=== PATIENT | male | born 1995 | race Caucasian/White ===

== ENCOUNTER 2017-09-20 23:55 | Day surgery (SDC) | payer OTHER ==
[~2017-09-20 23:55] MED LIST: Dexamethasone 4 MG/ML 5 ML MDV IVPUSH ONE; Glycopyrrolate 0.2 MG/ML 2 ML SDV IV ONE; Ketorolac 30 MG/ML SDV IVPUSH ONE; Lactated Ringers 1,000 ML IV ONE; Midazolam 1 MG/ML 2 ML SDV IV ONE; Neostigmine Methylsulfate 1 MG/ML 5 ML Syringe IV ONE; Ondansetron 4 MG/2 ML SDV IVPUSH ONE; Propofol 200 MG/20 ML SDV IV ONE; Rocuronium 100 MG/10 ML MDV IV ONE; Succinylcholine 200 MG/10 ML MDV IV ONE; cefOXitin 1 GM Vial IV ONE; diphenhydrAMINE 50 MG/ML SDV IV ONE; fentaNYL 100 MCG/2 ML SDV IV ONE
[2017-09-21] MEDS ORDERED: Ondansetron 4 MG/2 ML SDV IVPUSH ONE (00:22)
[2017-09-21] MEDS ORDERED: Morphine 4 MG/ML Syringe IVPUSH ONE (00:22)
[2017-09-21] MEDS ORDERED: Sodium Chloride 0.9% 10 ML Syringe FLUSH PRN (00:25)
[2017-09-21] MEDS ORDERED: Sodium Chloride 0.9% 1,000 ML IV SCH ×2 (00:30→01:45)
--- NOTE | 2017-09-21 00:30 | EDM.PDOC ---
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, did not bother too much at work, inc'd pain with walking however, inc'd pain on ride over to hospital pain worse this PM ate a quesidillaa and cookie for supper at 8 PM which made pain worse, some nausea d/t pain, no V no f/c/d no previous abd pain except for occasional cramps with exertion, no previous surgery, on no meds soft BM at 10 AM and 1 PM with no change in pain Lower Abdominal Pain Score (Numeric/FACES): 7 - Related Data Allergies Allergy/AdvReac Type Severity Reaction Status Date / Time Penicillins Allergy Vomiting Verified 09/21/17 00:04 Home Meds: Home Meds NK [No Known Home Meds] 09/21/17 [History] Past Medical History - Past Health History Medical/Surgical History: Denies Medical/Surgical History Social & Family History - Tobacco Use Smoking Status *Q: Light Tobacco Smoker Years of Tobacco use: 5 Packs/Tins Daily: 0.1 - Recreational Drug Use Recreational Drug Use: No ED ROS GENERAL - Review of Systems Review Of Systems: See Below Constitutional: Reports: Fatigue, Decreased Appetite. Denies: Fever, Chills HEENT: Reports: No Symptoms Respiratory: Reports: No Symptoms Cardiovascular: Reports: No Symptoms Endocrine: Reports: No Symptoms GI/Abdominal: Reports: Abdominal Pain, Nausea. Denies: Constipation, Diarrhea, Vomiting : Reports: No Symptoms Musculoskeletal: Reports: No Symptoms Skin: Reports: No Symptoms Neurological: Reports: No Symptoms Psychiatric: Reports: No Symptoms Hematologic/Lymphatic: Reports: No Symptoms Immunologic: Reports: No Symptoms ED EXAM, GI/ABD - Physical Exam Exam: See Below Exam Limited By: No Limitations General Appearance: Alert, WD/WN, Mild Distress Ears: Normal External Exam Nose: Normal Inspection, Normal Mucosa, No Blood Throat/Mouth: Normal Inspection, Normal Lips, Normal Teeth, Normal Gums, Normal Oropharynx, Normal Voice, No Airway Compromise Head: Atraumatic, Normocephalic Neck: Normal Inspection, Supple, Non-Tender, Full Range of Motion Respiratory/Chest: No Respiratory Distress, Lungs Clear, Normal Breath Sounds, No Accessory Muscle Use, Chest Non-Tender Cardiovascular: Regular Rate, Rhythm, No Edema, No Gallop, No Murmur, No Rub GI/Abdominal Exam: Normal Bowel Sounds, Soft, No Organomegaly, No Distention, No Mass, Other (nl BS x 4, tender to deep palpation at umbilicus and RLQ, no rebound, some guarding, no CVAT b/l, NT elsewhere, moves slowly and somewhat deliberately) Back Exam: Normal Inspection, Full Range of Motion, NT Extremities: Normal Inspection, Normal Range of Motion, Non-Tender, No Pedal Edema Neurological: Alert, Oriented, CN II-XII Intact, Normal Cognition, No Motor/ Sensory Deficits Psychiatric: Normal Affect, Normal Mood Skin Exam: Warm, Dry, Intact, Normal Color, No Rash Lymphatic: No Adenopathy Course - Vital Signs Last Recorded V/S: Last Vital Signs Temp 36.6 C 09/21/17 00:05 Pulse 89 09/21/17 00:05 Resp 18 09/21/17 00:05 BP 121/86 09/21/17 00:05 Pulse Ox 100 09/21/17 00:05 - Orders/Labs/Meds Orders: Active Orders 24 hr Category Date Time Status Abdomen Pelvis w Cont [CT] Stat Exams 09/21/17 00:23 Ordered LIPASE [REF] Stat Lab 09/21/17 00:23 Ordered Sodium Chloride 0.9% [Normal Saline] 1,000 ml Med 09/21/17 00:30 Ordered IV ASDIRECTED Sodium Chloride 0.9% [Saline Flush] Med 09/21/17 00:25 Active 10 ml FLUSH ASDIRECTED PRN Saline Lock Insert [OM.PC] Routine Oth 09/21/17 00:25 Ordered Medication Orders Sodium Chloride (Normal Saline) 1,000 mls @ 999 mls/hr IV ASDIRECTED ALEXX Last Admin: 09/21/17 00:36 Dose: 999 mls/hr Sodium Chloride (Saline Flush) 10 ml FLUSH ASDIRECTED PRN PRN Reason: Keep Vein Open Last Admin: 09/21/17 00:41 Dose: 10 ml Labs: Laboratory Tests 09/21/17 09/21/17 09/21/17 Range/Units 00:38 00:40 00:40 WBC 16.3 H (4.5-12.0) X10-3/uL RBC 4.99 (4.30-5.75) x10(6)uL Hgb 14.1 (11.5-15.5) g/dL Hct 41.7 (30.0-51.3) % MCV 83.5 (80-96) fL MCH 28.3 (27.7-33.6) pg MCHC 33.8 (32.2-35.4) g/dL RDW 12.6 (11.5-15.5) % Plt Count 310 (125-369) X10(3)uL MPV 8.0 (7.4-10.4) fL Neut % (Auto) 76.5 (46-82) % Lymph % (Auto) 17.8 (13-37) % Leake % (Auto) 4.9 (4-12) % Eos % (Auto) 1 (1.0-5.0) % Baso % (Auto) 0 (0-2) % Neut # (Auto) 12.5 H (1.6-8.3) # Lymph # (Auto) 2.9 (0.6-5.0) # Leake # (Auto) 0.8 (0.0-1.3) # Eos # (Auto) 0.1 (0.0-0.8) # Baso # (Auto) 0.0 (0.0-0.2) # Sodium 143 (135-145) mmol/L Potassium 3.7 (3.5-5.3) mmol/L Chloride 105 (100-110) mmol/L Carbon Dioxide 30 (21-32) mmol/L BUN 15 (7-18) mg/dL Creatinine 0.9 (0.70-1.30) mg/dL Est Cr Clr Drug Dosing 115.79 mL/min Estimated GFR (MDRD) > 60 (>60) BUN/Creatinine Ratio 16.7 (9-20) Glucose 100 (80-116) mg/dL Calcium 9.5 (8.6-10.2) mg/dL Total Bilirubin 0.3 (0.1-1.3) mg/dL AST 18 (5-25) IU/L ALT 25 (12-36) U/L Alkaline Phosphatase 58 (56-112) IU/L C-Reactive Protein (0.5-0.9) mg/dL Total Protein 7.4 (6.0-8.0) g/dL Albumin 4.2 (3.5-5.2) g/dL Globulin 3.2 g/dL Albumin/Globulin Ratio 1.3 Amylase 71 (25-115) U/L Urine Color Yellow (YELLOW) Urine Appearance Slightly cloudy (CLEAR) Urine pH 6.0 (5.0-6.5) Ur Specific [place] 1.020 (1.010-1.025) Urine Protein Negative (NEGATIVE) mg/dL Urine Glucose (UA) Normal (NEGATIVE) mg/dL Urine Ketones Negative (NEGATIVE) mg/dL Urine Occult Blood Negative (NEGATIVE) Urine Nitrite Negative (NEGATIVE) Urine Bilirubin Negative (NEGATIVE) Urine Urobilinogen Normal (NEGATIVE) mg/dL Ur Leukocyte Esterase Negative (NEGATIVE) Urine RBC 0-5 (0) Urine WBC 0-5 (0) Ur Squamous Epith Cells Rare (NS,R,O) Urine Bacteria Few H (NS) 09/21/17 Range/Units 00:40 WBC (4.5-12.0) X10-3/uL RBC (4.30-5.75) x10(6)uL Hgb (11.5-15.5) g/dL Hct (30.0-51.3) % MCV (80-96) fL MCH (27.7-33.6) pg MCHC (32.2-35.4) g/dL RDW (11.5-15.5) % Plt Count (125-369) X10(3)uL MPV (7.4-10.4) fL Neut % (Auto) (46-82) % Lymph % (Auto) (13-37) % Leake % (Auto) (4-12) % Eos % (Auto) (1.0-5.0) % Baso % (Auto) (0-2) % Neut # (Auto) (1.6-8.3) # Lymph # (Auto) (0.6-5.0) # Leake # (Auto) (0.0-1.3) # Eos # (Auto) (0.0-0.8) # Baso # (Auto) (0.0-0.2) # Sodium (135-145) mmol/L Potassium (3.5-5.3) mmol/L Chloride (100-110) mmol/L Carbon Dioxide (21-32) mmol/L BUN (7-18) mg/dL Creatinine (0.70-1.30) mg/dL Est Cr Clr Drug Dosing mL/min Estimated GFR (MDRD) (>60) BUN/Creatinine Ratio (9-20) Glucose (80-116) mg/dL Calcium (8.6-10.2) mg/dL Total Bilirubin (0.1-1.3) mg/dL AST (5-25) IU/L ALT (12-36) U/L Alkaline Phosphatase (56-112) IU/L C-Reactive Protein < 0.2 L (0.5-0.9) mg/dL Total Protein (6.0-8.0) g/dL Albumin (3.5-5.2) g/dL Globulin g/dL Albumin/Globulin Ratio Amylase (25-115) U/L Urine Color (YELLOW) Urine Appearance (CLEAR) Urine pH (5.0-6.5) Ur Specific [place] (1.010-1.025) Urine Protein (NEGATIVE) mg/dL Urine Glucose (UA) (NEGATIVE) mg/dL Urine Ketones (NEGATIVE) mg/dL Urine Occult Blood (NEGATIVE) Urine Nitrite (NEGATIVE) Urine Bilirubin (NEGATIVE) Urine Urobilinogen (NEGATIVE) mg/dL Ur Leukocyte Esterase (NEGATIVE) Urine RBC (0) Urine WBC (0) Ur Squamous Epith Cells (NS,R,O) Urine Bacteria (NS) Meds: Medications Generic Name Dose Route Start Last Admin Trade Name Freq PRN Reason Stop Dose Admin Sodium Chloride 1,000 mls @ 999 mls/hr 09/21/17 00:30 09/21/17 00:36 Normal Saline IV 999 mls/hr ASDIRECTED ALEXX Administration Sodium Chloride 10 ml 09/21/17 00:25 09/21/17 00:41 Saline Flush FLUSH 10 ml ASDIRECTED PRN Administration Keep Vein Open Discontinued Medications Generic Name Dose Route Start Last Admin Trade Name Freq PRN Reason Stop Dose Admin Iopamidol 75 ml 09/21/17 00:44 09/21/17 00:51 Isovue-370 (76%) IV 09/21/17 00:45 75 ml ONETIME ONE Administration Morphine Sulfate 4 mg 09/21/17 00:22 09/21/17 00:38 Morphine IVPUSH 09/21/17 00:23 4 mg ONETIME ONE Administration Ondansetron HCl 4 mg 09/21/17 00:22 09/21/17 00:38 Zofran IVPUSH 09/21/17 00:23 4 mg ONETIME ONE Administration - Re-Assessments/Exams Free Text/Narrative Re-Assessment/Exam: 09/21/17 01:33 pain still present altho better after MS, walks slightly hunched forward CT suggestive of acute appendicitis with distended 8 mm appendix and mild wall enhancement WBC 16.3, no temp, CRP <0.2 hx and PE c/w acute appendicitis as is CT d/w Dr Davis who requested cipro and metronidazole, admission to obs, surgery to be done at 6 AM Departure - Departure Time of Disposition: 01:41 Disposition: Refer to Observation Condition: Good Clinical Impression: Acute appendicitis - Discharge Information Referrals: PCP,None [Primary Care Provider] - Forms: ED Department Discharge - My Orders Last 24 Hours: My Active Orders 09/21/17 00:23 Abdomen Pelvis w Cont [CT] Stat LIPASE [REF] Stat 09/21/17 00:25 Sodium Chloride 0.9% [Saline Flush] 10 ml FLUSH ASDIRECTED PRN Saline Lock Insert [OM.PC] Routine 09/21/17 00:30 Sodium Chloride 0.9% [Normal Saline] 1,000 ml IV ASDIRECTED - Assessment/Plan Last 24 Hours: My Active Orders 09/21/17 00:23 Abdomen Pelvis w Cont [CT] Stat LIPASE [REF] Stat 09/21/17 00:25 Sodium Chloride 0.9% [Saline Flush] 10 ml FLUSH ASDIRECTED PRN Saline Lock Insert [OM.PC] Routine 09/21/17 00:30 Sodium Chloride 0.9% [Normal Saline] 1,000 ml IV ASDIRECTED
[2017-09-21] MEDS ORDERED: Iopamidol 755 Mg/ML 75 ML Bottle IV ONE (00:44)
[2017-09-21] MEDS ORDERED: Ciprofloxacin in D5W 400 MG in Premix Bag 1 BAG IV ONE ×2 (01:39)
[2017-09-21] MEDS ORDERED: metroNIDAZOLE/Normal Saline 500 MG in Premix Bag 1 BAG IV ONE (01:39)
[2017-09-21] MEDS ORDERED: Morphine 2 MG/ML Syringe IVPUSH PRN ×3 (01:46→07:28)
[2017-09-21] MEDS ORDERED: Ondansetron 4 MG/2 ML SDV IV PRN (01:46)
[2017-09-21] MEDS ORDERED: FLU Vacc QS 2017-18 (36mos UP)/PF 60 MCG/0.5 ML Syringe IM ONE (02:45)
[2017-09-21] MEDS ORDERED: Bupivacaine 0.5%/EPINEPHrine 1:200,000 50 ML MDV INJECT ONE (06:35)
[2017-09-21] MEDS ORDERED: Acetaminophen/HYDROcodone 325-5 MG Tab PO PRN ×2 (07:10)
[2017-09-21] MEDS ORDERED: Ondansetron 4 MG/2 ML SDV IVPUSH PRN (07:10)
--- NOTE | 2017-09-21 07:10 | PCM.OPNOTE ---
- General Post-Op/Procedure Note Date of Surgery/Procedure: 09/21/17 Operative Procedure(s): Laparoscopic Appendectomy Findings: Acutely inflamed appendix Pre Op Diagnosis: Acute Appendicitis Post-Op Diagnosis: Same Anesthesia Technique: General ET Tube Primary Surgeon: Manuel Davis Pathology: Appendix Output, Urine Amount: 0 EBL in mLs: 10 Complications: None Condition: Good Free Text/Narrative:: Intake & Output 09/20/17 09/21/17 09/21/17 22:59 06:59 14:59 Intake Total 525 Output Total 0 Balance 525
[2017-09-21] MEDS ORDERED: cefOXitin 2 GM in Sodium Chloride 0.9% 50 ML IV SCH (07:15)
[2017-09-21] MEDS ORDERED: cefOXitin 2 GM Vial IV SCH (07:45)
--- NOTE | 2017-09-21 11:01 | HP ---
ADMISSION DATE: 09/21/2017 HISTORY OF PRESENT ILLNESS: This 22-year-old male began having abdominal pain somewhat central in his abdomen approximately 08:00 a.m. yesterday. He noted the pain to continue and seemed to worsen a little bit in the right lower quadrant throughout the day and he presented to the emergency room with this persistent pain last night. The patient was evaluated, was noted to have marked tenderness in the right lower quadrant and workup included laboratory studies showing an elevated serum white blood cell count of 16,300 and normal hemoglobin of 14.1, unremarkable urinalysis and a CT scan was performed. This showed a dilated appendix consistent with acute appendicitis. Currently, the patient has continued pain, which is more severe in the right lower quadrant. It is exacerbated with movement. He has not had any vomiting or diarrhea. PAST MEDICAL HISTORY: Shows oral surgery and foot surgery in the past. He did not have any problems with anesthetics. He is generally healthy. He does not take any routine prescription medications. He is allergic to penicillin, which was noted when he was an infant. FAMILY HISTORY: Negative for any known anesthetic complications or bleeding disorders. SOCIAL HISTORY: The patient works at [employer]. REVIEW OF SYSTEMS: He has noted a slight left-sided sore throat over the last 3 days, but no cough or cold symptoms. He states it is not unusual for him to get strep throat. No chest pain or palpitations. Appetite has generally been good before this recent incident and no extremity complaints. PHYSICAL EXAMINATION: VITAL SIGNS: Temperature is 98.1, pulse 87, blood pressure is 113/76, weight is 140 pounds. GENERAL: The patient is a young adult male. He is in no acute distress. HEENT: Head is normocephalic. No scleral icterus. NECK: No cervical masses are noted. CARDIAC: His heart is regular. LUNGS: Clear. He has no CVA tenderness to percussion. ABDOMEN: His abdomen is flat. There is localized tenderness to direct palpation and also percussion tenderness in the right lower quadrant. He has only mild tenderness in the mid left lower quadrant. No guarding elsewhere in the abdomen and no palpable mass or hepatic or splenic enlargement. There is no inguinal tenderness or mass noted. EXTREMITIES: No muscular induration or edema and no gross deformities. NEUROLOGIC: Grossly normal. IMPRESSION: Acute appendicitis. PLAN: The patient is hospitalized and scheduled to undergo a laparoscopic appendectomy. INFORMED CONSENT: I have discussed the proposed operative procedure with the patient, reviewed with him indications, risks and possible complications of these included but were not limited to bleeding, infection, organ injury. We also discussed the possible need to convert to a laparotomy. He appears to understand and agrees to proceed. /[id number] WAN/DANGELO
--- NOTE | 2017-09-21 11:08 | OR ---
DATE OF OPERATION: 09/21/2017 SURGEON: Manuel Davis MD PREOPERATIVE DIAGNOSIS: Acute appendicitis. POSTOPERATIVE DIAGNOSIS: Acute appendicitis. OPERATION PERFORMED: Laparoscopic appendectomy. INDICATIONS FOR SURGERY: The patient presented to the emergency room with a several-hour history of abdominal pain which was most severe in the right lower quadrant. He had an elevated serum white blood cell count and a CT scan findings consistent with acute appendicitis. FINDINGS: The patient's appendix is acutely inflamed and shows dilation in its distal 2/3rd. There is no exudate and no evidence of perforation. The adjacent structures appear normal. PROCEDURE IN DETAIL: The patient was taken to the operating room. He was given general endotracheal anesthesia and the abdomen was sterilely prepped and draped. An infraumbilical stab wound incision was made. Through this, a Veress needle was inserted and pneumoperitoneum to a pressure of 15 mmHg was achieved with carbon dioxide. The Veress needle was then replaced with a 5-mm trocar into which the 5 mm variable angled laparoscopic camera was inserted. Under direct visualization, a 12-mm trocar was placed in the suprapubic midline and another 5-mm trocar was placed in the right lower quadrant. All trocar sites were infiltrated with Marcaine prior to incision. Intraabdominal inspection was carried out and attention was turned to the appendix. It was exposed and a window was made in the mesoappendix adjacent to the cecum. Utilizing this window, the appendiceal cecal junction was then stapled across using an Endo-SHAMIR stapler with 2.5 mm staple lengths. This divided the appendix from the cecum and inspection showed that the cecal staple line was of good quality. Two additional firings of the Endo-SHAMIR with the same size magdy was then performed to divide the mesoappendix. The appendix once freed was placed into the endo retrieval bag and extracted from the abdomen. Inspection of the operative region showed the cecal staple line to be of good quality. No sign of bleeding or any other complication. The pneumoperitoneum was then evacuated and the trocars were removed under direct visualization. The fascia of the suprapubic trocar site was closed with a [id number] 0 Vicryl suture. The wounds were irrigated with Betadine and saline solution. Skin incisions approximated with interrupted 4-0 Vicryl in a subcuticular stitch. Steri-Strips and benzoin were applied. Antibiotic ointment and sterile dressings were placed. The patient was awakened, extubated, and taken from the operating room in satisfactory condition. Estimated blood loss was 10 mL. Complications none. Prognosis good. /[id number] WAN/ADNGELO
[2017-09-21] MEDS: Lactated Ringers 1,000 ML IV SCH ×2 (11:51→21:55)
[2017-09-21] MEDS: cefOXitin 2 GM Vial IV SCH ×2 (14:36→20:05)
[2017-09-21] MEDS ORDERED: Ketorolac 10 MG Tab PO PRN (19:52)
[2017-09-22] MEDS: cefOXitin 2 GM Vial IV SCH (02:00)
--- NOTE | 2017-09-22 07:17 | PCM.SURGPN ---
- General Info Date of Service: 09/22/17 Date of Surgery/Procedure: 09/21/17 POD#: 1 Post-Op Diagnosis: Acute Appendicitis Functional Status: Reports: Pain Controlled, Tolerating Diet (taking just liquids so far) - Review of Systems Pulmonary: Reports: No Symptoms Gastrointestinal: Reports: Flatus. Denies: Nausea, Vomiting Genitourinary: Denies: Pain Musculoskeletal: Reports: No Symptoms - Patient Data Vitals - Most Recent: Last Vital Signs Temp 98.0 F 09/22/17 06:00 Pulse 84 09/22/17 06:00 Resp 16 09/22/17 06:00 BP 101/58 L 09/22/17 06:00 Pulse Ox 100 09/22/17 06:00 Weight - Most Recent: 140 lb 3 oz I&O - Last 24 Hours: Intake & Output 09/21/17 09/22/17 09/22/17 22:59 06:59 14:59 Intake Total 1887 814 Output Total 800 650 Balance 1087 164 Med Orders - Current: Current Medications Cefoxitin Sodium (Mefoxin) 2 gm IV Q6H [facility] Last Admin: 09/22/17 02:00 Dose: 2 gm Sodium Chloride (Normal Saline) 1,000 mls @ 999 mls/hr IV ASDIRECTED [facility] Last Admin: 09/21/17 00:36 Dose: 999 mls/hr Sodium Chloride (Normal Saline) 1,000 mls @ 75 mls/hr IV ASDIRECTED [facility] Last Admin: 09/21/17 01:45 Dose: 75 mls/hr Lactated Ringer's (Ringers, Lactated) 1,000 mls @ 100 mls/hr IV ASDIRECTED [facility] Last Admin: 09/21/17 21:55 Dose: 100 mls/hr Ketorolac Tromethamine (Toradol) 10 mg PO Q6H PRN PRN Reason: Pain Stop: 09/26/17 20:01 Morphine Sulfate (Morphine) 2 mg IVPUSH Q1H PRN PRN Reason: Pain (severe 7-10) Ondansetron HCl (Zofran) 4 mg IV Q4H PRN PRN Reason: Nausea/Vomiting Ondansetron HCl (Zofran) 4 mg IVPUSH Q6H PRN PRN Reason: Nausea/Vomiting Sodium Chloride (Saline Flush) 10 ml FLUSH ASDIRECTED PRN PRN Reason: Keep Vein Open Last Admin: 09/21/17 00:41 Dose: 10 ml Discontinued Medications Hydrocodone Bitart/Acetaminophen ([place] 325-5 Mg) 1 tab PO Q4H PRN PRN Reason: Pain (mild 1-3) Hydrocodone Bitart/Acetaminophen ([place] 325-5 Mg) 2 tab PO Q4H PRN PRN Reason: Pain (moderate 4-6) Bupivacaine HCl/Epinephrine Bitart (Marcaine 0.5%/Epinephrine 1:200,000) 20 ml INJECT .STK-MED ONE Stop: 09/21/17 06:36 Last Admin: 09/21/17 06:35 Dose: 20 ml Cefoxitin Sodium (Mefoxin) 2 gm IV .STK-MED ONE Stop: 09/20/17 06:01 Dexamethasone (Dexamethasone) 8 mg IVPUSH .STK-MED ONE Stop: 09/20/17 06:01 Diphenhydramine HCl (Benadryl) 12.5 mg IV .STK-MED ONE Stop: 09/20/17 06:01 Fentanyl (Sublimaze) 100 mcg IV .STK-MED ONE Stop: 09/20/17 06:01 Glycopyrrolate (Glycopyrrolate) 0.4 mg IV .STK-MED ONE Stop: 09/20/17 06:01 Ciprofloxacin/Dextrose 400 mg/ (Premix) 200 mls @ 200 mls/hr IV ONETIME ONE Stop: 09/21/17 02:38 Last Admin: 09/21/17 01:53 Dose: 200 mls/hr Metronidazole 500 mg/ Premix 100 mls @ 100 mls/hr IV ONETIME ONE Stop: 09/21/17 02:38 Last Admin: 09/21/17 02:56 Dose: 100 mls/hr Lactated Ringer's (Ringers, Lactated) 1,000 mls @ as directed IV .STK-MED ONE Stop: 09/20/17 06:01 Influenza Virus Vaccine (Fluzone Quad [id number]) 60 mcg IM .ONCE ONE Stop: 09/21/17 02:46 Iopamidol (Isovue-370 (76%)) 75 ml IV ONETIME ONE Stop: 09/21/17 00:45 Last Admin: 09/21/17 00:51 Dose: 75 ml Ketorolac Tromethamine (Toradol) 30 mg IVPUSH .STK-MED ONE Stop: 09/20/17 06:01 Midazolam HCl (Versed 1 Mg/Ml) 2 mg IV .STK-MED ONE Stop: 09/20/17 06:01 Morphine Sulfate (Morphine) 4 mg IVPUSH ONETIME ONE Stop: 09/21/17 00:23 Last Admin: 09/21/17 00:38 Dose: 4 mg Morphine Sulfate (Morphine) 2 mg IVPUSH Q3M PRN PRN Reason: Abdominal Pain Last Admin: 09/21/17 07:58 Dose: 2 mg Neostigmine Methylsulfate (Neostigmine) 3 mg IV .STK-MED ONE Stop: 09/20/17 06:01 Ondansetron HCl (Zofran) 4 mg IVPUSH ONETIME ONE Stop: 09/21/17 00:23 Last Admin: 09/21/17 00:38 Dose: 4 mg Ondansetron HCl (Zofran) 4 mg IVPUSH .STK-MED ONE Stop: 09/20/17 06:01 Propofol (Diprivan 20 Ml) 200 mg IV .STK-MED ONE Stop: 09/20/17 06:01 Rocuronium Ruston (Zemuron) 30 mg IV .STK-MED ONE Stop: 09/20/17 06:01 Succinylcholine Chloride (Quelicin) 100 mg IV .STK-MED ONE Stop: 09/20/17 06:01 - Exam Wound/Incisions: Healing Well, Drainage (minimal). No: Erythema General: Alert, Oriented Lungs: Normal Respiratory Effort GI/Abdominal Exam: Soft, Non-Tender (except near incisions), No Distention - Problem List Review Problem List Initiated/Reviewed/Updated: Yes - My Orders Last 24 Hours: Active Orders 24 hr Category Date Time Status Patient Status [ADT] Routine ADT 09/21/17 07:10 Active Ambulate [RC] ASDIRECTED Care 09/21/17 07:10 Active Antiembolic Devices [RC] .Routine Care 09/21/17 07:13 Active Intake and Output [RC] 06,14,22 Care 09/21/17 07:11 Active Oxygen Therapy [RC] PRN Care 09/21/17 07:10 Active RT Incentive Spirometry [RC] Q1HWA Care 09/21/17 07:10 Active Vital Signs [RC] PER UNIT ROUTINE Care 09/21/17 07:10 Active Full Liquid Diet [DIET] Diet 09/22/17 Breakfast Ordered CBC WITH AUTO DIFF [HEME] Routine Lab 09/22/17 07:10 Received Ketorolac [Toradol] Med 09/21/17 19:52 Active 10 mg PO Q6H PRN Lactated Ringers [Ringers, Lactated] 1,000 ml Med 09/21/17 07:15 Active IV ASDIRECTED Morphine Med 09/21/17 07:10 Active 2 mg IVPUSH Q1H PRN Ondansetron [Zofran] Med 09/21/17 07:10 Active 4 mg IVPUSH Q6H PRN cefOXitin [Mefoxin] Med 09/21/17 14:00 Active 2 gm IV Q6H Convert IV to Saline Lock [OM.PC] Routine Oth 09/22/17 07:14 Ordered DVT/VTE Prophylaxis Reflex [OM.PC] Per Unit Routine Oth 09/21/17 07:13 Ordered Medication Orders Cefoxitin Sodium (Mefoxin) 2 gm IV Q6H [facility] Last Admin: 09/22/17 02:00 Dose: 2 gm Admin: 09/21/17 20:05 Dose: 2 gm Admin: 09/21/17 14:36 Dose: 2 gm Sodium Chloride (Normal Saline) 1,000 mls @ 999 mls/hr IV ASDIRECTED [facility] Last Admin: 09/21/17 00:36 Dose: 999 mls/hr Sodium Chloride (Normal Saline) 1,000 mls @ 75 mls/hr IV ASDIRECTED [facility] Last Admin: 09/21/17 01:45 Dose: 75 mls/hr Lactated Ringer's (Ringers, Lactated) 1,000 mls @ 100 mls/hr IV ASDIRECTED [facility] Last Admin: 09/21/17 21:55 Dose: 100 mls/hr Infusion: 09/21/17 21:51 Dose: 100 mls/hr Admin: 09/21/17 11:51 Dose: 100 mls/hr Ketorolac Tromethamine (Toradol) 10 mg PO Q6H PRN PRN Reason: Pain Stop: 09/26/17 20:01 Morphine Sulfate (Morphine) 2 mg IVPUSH Q1H PRN PRN Reason: Pain (severe 7-10) Ondansetron HCl (Zofran) 4 mg IV Q4H PRN PRN Reason: Nausea/Vomiting Ondansetron HCl (Zofran) 4 mg IVPUSH Q6H PRN PRN Reason: Nausea/Vomiting Sodium Chloride (Saline Flush) 10 ml FLUSH ASDIRECTED PRN PRN Reason: Keep Vein Open Last Admin: 09/21/17 00:41 Dose: 10 ml - Assessment Assessment (Free Text/Narrative):: POD#1 Appendectomy - doing well - Plan Plan (Free Text/Narrative):: Will advance diet and if does well then discharge
== END 2017-09-22 13:50 | disposition home or self-care (01) ==
LOC: FB.ED 23:55 → UNDOADMOB 09-21 01:40 → FB.MS 09-21 01:40 → FB.SDS 09-21 01:40
PROVIDERS: ATTEND Surgery
DX: K35.80 Unspecified acute appendicitis (principal); F17.210 Nicotine dependence, cigarettes, uncomplicated; Z88.0 Allergy status to penicillin
CPT/HCPCS: 36415; 74177; 80053; 81001; 82150; 83690; 85025; 86140; 88304; 90686; 94150; 96361; 96374; 96375; 99285; A9270-GY; G0008; J0330; J0694; J0744; J1100; J1200; J1885; J2250; J2270; J2405; J2704; J3010; J3490; J7040; J7050; J7120; Q9967